=== PATIENT | male | born 1970 | race Caucasian/White ===

== ENCOUNTER 2018-06-10 17:22 | Emergency (ER) | payer OTHER ==
[~2018-06-10] VITALS: Ht 170.2 cm; Wt 86.4 kg
[2018-06-10] MEDS ORDERED: LISI-661 PO (17:59)
[2018-06-10] MEDS ORDERED: KETOROLAC TROMETHAMINE 30 MG/ML VIAL IVP ONE (18:45)
[2018-06-10] MEDS ORDERED: ETOMIDATE 2 MG/ML 10 ML VIAL IVP ONE (19:30)
[2018-06-10] MEDS ORDERED: FentaNYL CITRATE-PF 100 MCG/2 ML VIAL IVP ONE (19:30)
[2018-06-10] MEDS ORDERED: MIDAZOLAM HCL 5 MG/ML VIAL IVP ONE (19:30)
[2018-06-10 22:20] VITALS: BP 133/88
== END 2018-06-10 22:39 | disposition home or self-care (01) ==
LOC: EMS 17:24
DX: S62.347A Nondisplaced fracture of base of fifth metacarpal bone, left hand, initial encounter for closed fracture (principal); S53.195A Other dislocation of left ulnohumeral joint, initial encounter; I10 Essential (primary) hypertension; Y04.0XXA Assault by unarmed brawl or fight, initial encounter; Y93.89 Activity, other specified; Y92.89 Other specified places as the place of occurrence of the external cause; Y99.8 Other external cause status
CPT/HCPCS: 24600; 70450; 73030; 73070; 73080; 73110; 96374; 99285; J1885; J3490; 96375; J2250; J3010